=== PATIENT | male | born 1965 | race Asian ===

== ENCOUNTER → 2017-08-28 | Day surgery (SDC) | payer OTHER ==
[~2017-08-28] VITALS: Ht 167.6 cm; Wt 73.0 kg
[~2017-08-28] MED LIST: MULTIVITAMINS1 EAC9 PO
--- NOTE | 2017-08-28 16:24 | Operative Report ---
Operative/Inv Procedure Report Surgery Date: 08/28/17 Name of Procedure: Excision of ganglion cyst dorsum right foot Pre-Operative Diagnosis: Right foot mass Post-Operative Diagnosis: Right foot ganglion Estimated Blood Loss: scant Surgeon/Biogeographer: Khushboo SANFORD,Stew Foster Anesthesia: general endotracheal tube Operative/Procedure Note Note: Patient was positioned supine and his right foot was prepped and draped in usual sterile fashion we made a mele overlying the palpable mass aligned with the skin lines about 2-1/2 cm long infiltrated local anesthetic and made the incision with a 15 blade deepened it to the dermis there was practically no subcutaneous tissue between the dermis and this mass which then appeared as a ganglion cyst this was dissected circumferentially following its thin long and narrow tract inferiorly to the first metatarsal joint, and then disconnected there at the level of the periostium. Area was checked for hemostasis and then closed in layers using 3-0 Vicryl interrupted subdermally and then a running 4-0 nylon for the skin itself followed by Telfa and Tegaderm. EBL minimal lap and sponge counts correct wound expectancy clean IV fluids crystalloid complications none patient tolerated the procedure well was extubated and returned to recovery room in satisfactory condition.
== END ==
LOC: STS 00:35
DX: M67.471 Ganglion, right ankle and foot (principal)
CPT/HCPCS: 88305; J0131; J0690; J2250